=== PATIENT | female | born 1955 | race Caucasian/White ===

== ENCOUNTER → 2016-08-15 | Outpatient (CLI) | payer MEDICARE, MEDICAID ==
[~2016-08-15] MED LIST: DARVOCET N 1001 TAB PO; DIOVAN HCT PO; DIOVAN40 MG PO; HUMALOG100 U/ML; HYDROCODONE BIT1 T11 PO; IBU-8800 MG PO; LANTUS100 U/ML SC; LEXAPRO10 MG PO; NEURONTIN300 MG PO; SYNTHROID,LEV150 MCG PO; VYTORIN 10 MG-41 TAB PO; ZEGERID 20 MG-11 CAP PO; ZOFRAN4 MG PO; [UNRECOGNIZED DRUG - OTHER]; [UNRECOGNIZED DRUG - OTHER]
[2016-08-15 09:30] LABS: BILIRUBIN NEGATIVE (NEGATIVE); BLOOD TRACE-LYSED (NEGATIVE); CLARITY SL CLOUDY (CLEAR); COLOR YELLOW (YELLOW); GLUCOSE NEGATIVE (NEGATIVE); KETONE NEGATIVE (NEGATIVE); LEUKO ESTERASE TRACE (NEGATIVE); NITRITE NEGATIVE (NEGATIVE); PH 5.5 (5.0-9.0); PROTEIN 1+ (NEGATIVE); UROBILINOGEN 0.2 E.U./dl (0.2-1.0)
[2016-08-15 09:38] LABS: URINE TP/CRE RATIO 1.4 (<0.21)
[2016-08-15 09:39] LABS: BACTERIA TRACE; RBC 0-2 rbc/hpf (0-2); URINE REFLEX COMMENT YES (NO)
[2016-08-15 09:55] LABS: ALBUMIN 3.5 gm/dl (3.1-4.5); MAGNESIUM 2.3 mg/dL (1.5-2.1); PHOSPHOROUS 2.8 mg/dL (2.5-4.9); POTASSIUM 4.4 mmol/L (3.5-5.1)
[2016-08-15 09:58] LABS: HEMATOCRIT 34.3 % (37.0-47.0); HEMOGLOBIN 10.6 g/dl (12.0-16.0); MEAN CELL VOLUME 94.2 fl (81.0-99.0); MEAN CORPUSCULAR HGB 29.1 pg (27.0-31.0); MEAN CORPUSCULAR HGB CONC 30.9 g/dl (33.0-37.0); MEAN PLATELET VOLUME 10.5 fl (9.6-12.3); PLATELET COUNT AUTOMATED 350 10*3/uL (130-400); RED BLOOD COUNT 3.64 10*6/uL (4.10-5.10); RED CELL DISTRI WIDTH 14.6 % (0-14.5)
[2016-08-15 10:26] LABS: EOSINOPHIL # 0.1 10*3/uL (0-0.4); EOSINOPHILS 1 % (1-4); LYMPHOCYTE # 1.4 10*3/uL (1.3-4.4); METAMYELOCYTES 3 % (0-0); NEUTROPHIL # 11.1 10*3/uL (2.3-7.9); NEUTROPHILS 79 % (47-73); TOTAL CELLS COUNTED 100 #CELLS
[2016-08-15 10:27] LABS: PLATELET SUFFICIENCY NORMAL (NORMAL)
[2016-08-15 10:50] LABS: VITAMIN D, 25-HYDROXY 16.1 ng/mL (30-100)
[2016-08-15 10:51] LABS: FERRITIN 38.6 ng/mL (10.0-291.0); PTH INTACT 91.5 pg/mL (14.0-72.0)
== END | disposition home or self-care (01) ==
LOC: LAB 09:10
PROVIDERS: Internal Medicine Nephrology
DX: N18.4 Chronic kidney disease, stage 4 (severe) (principal); E55.9 Vitamin D deficiency, unspecified; R80.9 Proteinuria, unspecified; D63.1 Anemia in chronic kidney disease

== ENCOUNTER → 2017-03-13 | Outpatient (CLI) | payer MEDICARE, MEDICAID ==
[2017-03-13 13:46] LABS: BASO # 0.1 10*3/uL (0.0-0.1); BILIRUBIN NEGATIVE (NEGATIVE); BLOOD TRACE-LYSED (NEGATIVE); CLARITY CLEAR (CLEAR); COLOR YELLOW (YELLOW); EOS # 0.4 10*3/uL (0.0-0.4); EOS % 4.5 % (1.0-4.0); GLUCOSE TRACE (NEGATIVE); HEMOGLOBIN 9.8 g/dl (12.0-16.0); KETONE NEGATIVE (NEGATIVE); LEUKO ESTERASE NEGATIVE (NEGATIVE); LYMPH # 1.3 10*3/uL (1.3-4.4); LYMPH % 13.7 % (27.0-41.0); MEAN CELL VOLUME 92.5 fl (81.0-99.0); MEAN CORPUSCULAR HGB 28.3 pg (27.0-31.0); MEAN CORPUSCULAR HGB CONC 30.6 g/dl (33.0-37.0); MEAN PLATELET VOLUME 9.9 fl (9.6-12.3); MONO # 0.7 10*3/uL (0.1-1.0); MONO % 7.7 % (3.0-9.0); NEUT # 6.6 10*3/uL (2.3-7.9); NEUT % 71.9 % (47.0-73.0); NITRITE NEGATIVE (NEGATIVE); PLATELET COUNT AUTOMATED 296 10*3/uL (130-400); RED BLOOD COUNT 3.46 10*6/uL (4.10-5.10); RED CELL DISTRI WIDTH 15.2 % (0-14.5); SPECIFIC GRAVITY 1.015 (1.005-1.030); UROBILINOGEN 0.2 E.U./dl (0.2-1.0); WHITE BLOOD COUNT 9.2 10*3/uL (4.8-10.8)
[2017-03-13 13:57] LABS: BACTERIA 2+; RBC 0-2 rbc/hpf (0-2)
[2017-03-13 14:10] LABS: ALBUMIN 3.3 gm/dl (3.1-4.5); CREATININE 2.39 mg/dL (0.55-1.02); PHOSPHOROUS 4.1 mg/dL (2.5-4.9); POTASSIUM 4.8 mmol/L (3.5-5.1)
[2017-03-13 14:35] LABS: FERRITIN 38.1 ng/mL (10.0-291.0); VITAMIN D, 25-HYDROXY 18.1 ng/mL (30-100)
[2017-03-13 14:36] LABS: PTH INTACT 68.2 pg/mL (14.0-72.0)
== END | disposition home or self-care (01) ==
LOC: LAB 13:20
PROVIDERS: Internal Medicine Nephrology
DX: N18.4 Chronic kidney disease, stage 4 (severe) (principal); E55.9 Vitamin D deficiency, unspecified; D63.1 Anemia in chronic kidney disease; R80.9 Proteinuria, unspecified; Z79.899 Other long term (current) drug therapy

== ENCOUNTER → 2017-09-08 | Outpatient (CLI) | payer MEDICARE, MEDICAID ==
[2017-09-08 10:24] LABS: BASO # 0.1 10*3/uL (0.0-0.1); BASO % 1.4 % (0.0-1.0); EOS # 0.5 10*3/uL (0.0-0.4); HEMATOCRIT 31.7 % (37.0-47.0); HEMOGLOBIN 9.5 g/dl (12.0-16.0); LYMPH # 1.1 10*3/uL (1.3-4.4); LYMPH % 12.1 % (27.0-41.0); MEAN CELL VOLUME 94.1 fl (81.0-99.0); MEAN CORPUSCULAR HGB 28.2 pg (27.0-31.0); MEAN PLATELET VOLUME 9.9 fl (9.6-12.3); MONO # 0.7 10*3/uL (0.1-1.0); MONO % 7.5 % (3.0-9.0); NEUT # 6.9 10*3/uL (2.3-7.9); NEUT % 73.3 % (47.0-73.0); PLATELET COUNT AUTOMATED 339 10*3/uL (130-400); RED BLOOD COUNT 3.37 10*6/uL (4.10-5.10); RED CELL DISTRI WIDTH 14.6 % (0-14.5); WHITE BLOOD COUNT 9.5 10*3/uL (4.8-10.8)
[2017-09-08 10:28] LABS: BILIRUBIN NEGATIVE (NEGATIVE); BLOOD TRACE-INTACT (NEGATIVE); CLARITY CLEAR (CLEAR); COLOR YELLOW (YELLOW); GLUCOSE NEGATIVE (NEGATIVE); KETONE NEGATIVE (NEGATIVE); LEUKO ESTERASE TRACE (NEGATIVE); NITRITE NEGATIVE (NEGATIVE); SPECIFIC GRAVITY <= 1.005 (1.005-1.030); UROBILINOGEN 0.2 E.U./dl (0.2-1.0)
[2017-09-08 10:36] LABS: BACTERIA TRACE
[2017-09-08 10:47] LABS: ALBUMIN 3.6 gm/dl (3.1-4.5); CREATININE 2.29 mg/dL (0.55-1.02); PHOSPHOROUS 3.7 mg/dL (2.5-4.9); POTASSIUM 4.7 mmol/L (3.5-5.1)
[2017-09-08 12:01] LABS: FERRITIN 31.6 ng/mL (10.0-291.0); VITAMIN D, 25-HYDROXY 25.5 ng/mL (30-100)
== END | disposition home or self-care (01) ==
LOC: LAB 09:38
PROVIDERS: Internal Medicine Nephrology
DX: N18.4 Chronic kidney disease, stage 4 (severe) (principal); E55.9 Vitamin D deficiency, unspecified; D53.1 Other megaloblastic anemias, not elsewhere classified; R80.9 Proteinuria, unspecified

== ENCOUNTER → 2018-02-26 | Outpatient (CLI) | payer MEDICARE, MEDICAID ==
[2018-02-26 10:56] LABS: BASO # 0.1 10*3/uL (0.0-0.1); BASO % 1.1 % (0.0-1.0); EOS # 0.3 10*3/uL (0.0-0.4); EOS % 3.8 % (1.0-4.0); HEMATOCRIT 34.2 % (37.0-47.0); HEMOGLOBIN 11.1 g/dl (12.0-16.0); LYMPH # 1.2 10*3/uL (1.3-4.4); LYMPH % 12.8 % (27.0-41.0); MEAN CELL VOLUME 86.6 fl (81.0-99.0); MEAN CORPUSCULAR HGB 28.1 pg (27.0-31.0); MEAN CORPUSCULAR HGB CONC 32.5 g/dl (33.0-37.0); MEAN PLATELET VOLUME 10.1 fl (9.6-12.3); MONO # 0.5 10*3/uL (0.1-1.0); MONO % 5.7 % (3.0-9.0); NEUT # 6.8 10*3/uL (2.3-7.9); NEUT % 75.7 % (47.0-73.0); PLATELET COUNT AUTOMATED 404 10*3/uL (130-400); RED BLOOD COUNT 3.95 10*6/uL (4.10-5.10); RED CELL DISTRI WIDTH 13.9 % (0-14.5)
[2018-02-26 11:02] LABS: BILIRUBIN NEGATIVE (NEGATIVE); BLOOD NEGATIVE (NEGATIVE); CLARITY SL CLOUDY (CLEAR); COLOR YELLOW (YELLOW); GLUCOSE NEGATIVE (NEGATIVE); KETONE NEGATIVE (NEGATIVE); LEUKO ESTERASE NEGATIVE (NEGATIVE); NITRITE NEGATIVE (NEGATIVE); UROBILINOGEN 0.2 E.U./dl (0.2-1.0)
[2018-02-26 11:10] LABS: URINE CREATININE RANDOM 36.7 mg/dL
[2018-02-26 11:20] LABS: RBC 0-2 rbc/hpf (0-2)
[2018-02-26 11:24] LABS: ALBUMIN 3.5 gm/dl (3.1-4.5); CREATININE 2.27 mg/dL (0.55-1.02); PHOSPHOROUS 4.6 mg/dL (2.5-4.9); POTASSIUM 4.4 mmol/L (3.5-5.1)
[2018-02-26 12:58] LABS: FERRITIN 144.3 ng/mL (10.0-291.0); VITAMIN D, 25-HYDROXY 68.7 ng/mL (30-100)
[2018-02-26 12:59] LABS: PTH INTACT 72.2 pg/mL (18.5-88.0)
== END | disposition home or self-care (01) ==
LOC: LAB 10:08
PROVIDERS: Internal Medicine Nephrology
DX: N18.4 Chronic kidney disease, stage 4 (severe) (principal); E55.9 Vitamin D deficiency, unspecified; D63.1 Anemia in chronic kidney disease; R80.9 Proteinuria, unspecified

== ENCOUNTER → 2018-11-06 | Outpatient (CLI) | payer MEDICARE, MEDICAID ==
[2018-11-06 11:11] LABS: ALBUMIN 3.7 gm/dl (3.1-4.5); CREATININE 2.36 mg/dL (0.55-1.02); FREE T4 0.83 ng/dl (0.76-1.46); POTASSIUM 5.2 mmol/L (3.5-5.1); TOTAL PROTEIN 7.3 gm/dL (6.4-8.2)
[2018-11-06 11:16] LABS: THYROID STIM HORMONE (HS) 0.941 uIU/ml (0.358-4.75)
[2018-11-07 06:32] LABS: CREATININE,URINE 36.4 mg/dL (Not Estab.); MICRO ALBUMIN/CRE RATIO 147.3 (0.0-30.0)
== END | disposition home or self-care (01) ==
LOC: LAB 10:17
PROVIDERS: Nurse Practitioner Family
DX: E11.49 Type 2 diabetes mellitus with other diabetic neurological complication (principal); E11.65 Type 2 diabetes mellitus with hyperglycemia

== ENCOUNTER → 2019-03-19 | Outpatient (CLI) | payer MEDICARE, MEDICAID ==
[2019-03-19 09:48] LABS: BASO # 0.1 10*3/uL (0.0-0.1); BASO % 1.1 % (0.0-1.0); EOS # 0.3 10*3/uL (0.0-0.4); HEMATOCRIT 34.3 % (37.0-47.0); HEMOGLOBIN 10.3 g/dl (12.0-16.0); LYMPH # 1.7 10*3/uL (1.3-4.4); LYMPH % 15.8 % (27.0-41.0); MEAN CELL VOLUME 96.1 fl (81.0-99.0); MEAN CORPUSCULAR HGB 28.9 pg (27.0-31.0); MEAN PLATELET VOLUME 9.6 fl (9.6-12.3); MONO # 0.8 10*3/uL (0.1-1.0); MONO % 7.7 % (3.0-9.0); NEUT # 7.4 10*3/uL (2.3-7.9); NEUT % 70.5 % (47.0-73.0); PLATELET COUNT AUTOMATED 292 10*3/uL (130-400); RED BLOOD COUNT 3.57 10*6/uL (4.10-5.10); RED CELL DISTRI WIDTH 15.1 % (0-14.5); WHITE BLOOD COUNT 10.4 10*3/uL (4.8-10.8)
[2019-03-19 09:57] LABS: URINE CREATININE RANDOM 17.8 mg/dL
[2019-03-19 10:16] LABS: ALBUMIN 3.6 gm/dl (3.1-4.5); CREATININE 2.41 mg/dL (0.55-1.02); PHOSPHOROUS 3.7 mg/dL (2.5-4.9); POTASSIUM 4.6 mmol/L (3.5-5.1)
[2019-03-19 10:34] LABS: BILIRUBIN NEGATIVE (NEGATIVE); BLOOD NEGATIVE (NEGATIVE); CLARITY SL CLOUDY (CLEAR); COLOR YELLOW (YELLOW); GLUCOSE NEGATIVE (NEGATIVE); KETONE NEGATIVE (NEGATIVE)
[2019-03-19 10:35] LABS: LEUKO ESTERASE NEGATIVE (NEGATIVE); NITRITE NEGATIVE (NEGATIVE); UROBILINOGEN 0.2 E.U./dl (0.2-1.0)
[2019-03-19 10:41] LABS: BACTERIA 1+; MUCOUS TRACE
[2019-03-19 12:25] LABS: VITAMIN D, 25-HYDROXY 29.9 ng/mL (30-100)
[2019-03-19 12:26] LABS: FERRITIN 25.7 ng/mL (10.0-291.0); PTH INTACT 135.9 pg/mL (18.5-88.0)
== END | disposition home or self-care (01) ==
LOC: LAB 09:23
PROVIDERS: Internal Medicine Nephrology
DX: D63.1 Anemia in chronic kidney disease (principal); N18.4 Chronic kidney disease, stage 4 (severe); E55.9 Vitamin D deficiency, unspecified; R80.9 Proteinuria, unspecified

== ENCOUNTER 2019-11-22 16:05 | Inpatient (IN) | payer MEDICARE, MEDICAID ==
[~2019-11-22] VITALS: Ht 170.2 cm; Wt 120.4 kg
[2019-11-22 16:19] VITALS: BP 147/63
[2019-11-22 17:17] LABS: MEAN CELL VOLUME 92.2 fl (81.0-99.0); MEAN CORPUSCULAR HGB 25.8 pg (27.0-31.0); MEAN PLATELET VOLUME 9.9 fl (9.6-12.3); NUCLEATED RED BLOOD CELL 0.1 10*3/uL (0.0-0.0); NUCLEATED RED BLOOD CELL 0.8 % (0.0-0.0); PLATELET COUNT AUTOMATED 317 10*3/uL (130-400); RED BLOOD COUNT 2.17 10*6/uL (4.10-5.10); RED CELL DISTRI WIDTH 18.5 % (0-14.5); WHITE BLOOD COUNT 10.3 10*3/uL (4.8-10.8)
[2019-11-22 17:39] LABS: BASOPHILS 1 % (0-1); MICROCYTOSIS MODERATE; PLATELET SUFFICIENCY NORMAL (NORMAL); TOTAL CELLS COUNTED 100 #CELLS
[2019-11-22 17:40] LABS: ACT PARTIAL THROMBO TIME 26.6 SECONDS (20.0-32.1); INTERNATIONAL NORM RATIO 0.9 (2.0-3.5)
[2019-11-22 17:41] LABS: ALBUMIN 2.9 gm/dl (3.1-4.5); CREATININE 3.12 mg/dL (0.55-1.02); POTASSIUM 4.8 mmol/L (3.5-5.1); TOTAL PROTEIN 6.7 gm/dL (6.4-8.2)
[2019-11-22 17:42] LABS: TROPONIN I 0.022 ng/ml (<0.045)
--- NOTE | 2019-11-22 18:47 | NUR ---
BLOOD BANK CALLED STATING DUE TO ANTIBDY TEST THERE WOULD BE A DELAY IN BLOOD FOR PT
--- NOTE | 2019-11-22 18:47 | NUR ---
PT TO RECIEVE LASIX IN BETWEEN UNITS OF BLOOD
--- NOTE | 2019-11-22 20:07 | NUR ---
CALLED NURSE ON 5TH FLOOR FOR TRANSPORT NO RESPONSE WILL ATTEMPT TO CALL AGAIN
--- NOTE | 2019-11-22 20:27 | NUR ---
CALLED TO [facility] 2ND ATTEMPT NO ANSWER, CALLED FLOOR THEY SAID THEY WOULD HAVE THE NURSE CALL FOR TRANSPORT
[2019-11-22 21:00] VITALS: BP 163/64
--- NOTE | 2019-11-22 21:00 | NUR ---
A 64, admitted to 5E, under the services of LON Iglesias DO with a diagnosis of CHF, ANEMIA. Chief complaint is FEELING WEAK/TIRED/SHORT OF BREATH AT HOME. Patient arrived via stretcher from ER. Monitor applied. Initial assessment completed. Vital signs taken and recorded. LON IGLESIAS DO notified of admission to the unit. Orders received. See assessment for past medical history, medications and allergies. Patient and/or family oriented to unit. [facility] visitation policy reviewed. Clothing/patient valuable form completed. DANIEL CHEEMA
--- NOTE | 2019-11-22 21:05 | NUR ---
PT. KEEPS STATING THAT SHE IS NOT STAYING TOMORROW & WILL LEAVE AFTER SHE RECEIVED BLOOD. STATES THAT SHE HAS A DOG AT HOME THAT CANNOT BE LEFT ALONE & SHE NEEDS TO BE HOME WITH HER DOG OR HE WILL NOT EAT. DAUGHTER, GILBERTO, IS STAYING AT PT'S HOUSE OVERNIGHT. PT. ALSO STATES THAT SHE STOPPED TAKING HER IRON 8 MOUNTHS AGO DUE TO THE COST OF THE PRESCRIPTION. STATES THAT A PRESCRIPTION OF IRON PILLS COST HER APPROXIMATELY $200.
--- NOTE | 2019-11-22 21:30 | NUR ---
DR. GR HERE TO SEE PT. & DISCUSS PLAN OF CARE.
--- NOTE | 2019-11-22 22:00 | NUR ---
REFUSES INSULIN COVERAGE.
[2019-11-22] MEDS ORDERED: LASIX40 MG PO (22:02)
[2019-11-22] MEDS ORDERED: CATAPRES0.2 M1 PO (22:03)
[2019-11-22] MEDS ORDERED: ZETIA10 MG PO (22:03)
[2019-11-22] MEDS ORDERED: COZAAR100 MG PO (22:04)
[2019-11-22] MEDS ORDERED: SYNTHROID,LEVO88 MCG PO (22:05)
[2019-11-22] MEDS ORDERED: ZOCOR40 MG PO (22:08)
[2019-11-22] MEDS ORDERED: Rocaltrol0.25 MCG PO (22:08)
[2019-11-22] MEDS ORDERED: LABETALOL HCL100 MG PO (22:09)
[2019-11-22] MEDS ORDERED: AURYXIA210 MG PO (22:10)
[2019-11-22] MEDS ORDERED: ASPIRIN ADULT L81 M1 PO (22:10)
[2019-11-22] MEDS ORDERED: LANTUS SOL100 UNIT/1 SC (22:12)
[2019-11-22] MEDS ORDERED: HUMALOG100 UNIT/2 SC (22:12)
[2019-11-22 23:32] LABS: BILIRUBIN Negative (Negative); BLOOD Negative (Negative); CLARITY Clear (Clear); COLOR Yellow (Yellow); GLUCOSE Negative (Negative); KETONE Negative (Negative); LEUKO ESTERASE Negative (Negative); NITRITE Negative (Negative); SPECIFIC GRAVITY <= 1.005 (1.001-1.030); UROBILINOGEN 0.2 E.U./dl (0.0-1.0)
[2019-11-22 23:39] LABS: BACTERIA TRACE; RBC 0-2 rbc/hpf (0-2); WBC 0-2 wbc/hpf (0-5)
[2019-11-23] VITALS (15 sets, daily range): BP systolic 95–171; BP diastolic 47–80
--- NOTE | 2019-11-23 01:20 | NUR ---
PT'S BP ELEVATED. CALLED DR. BARRERA; NEW ORDER RECEIVED FOR LABETALOL.
--- NOTE | 2019-11-23 04:00 | NUR ---
RESTING IN BED; CALL LIGHT WITHIN REACH.
[2019-11-23 05:57] LABS: ALBUMIN 2.9 gm/dl (3.1-4.5); POTASSIUM 4.9 mmol/L (3.5-5.1)
[2019-11-23 06:00] LABS: TOTAL PROTEIN 6.5 gm/dL (6.4-8.2)
--- NOTE | 2019-11-23 06:56 | NUR ---
BLOOD SUGAR 203; COVERAGE PER EMAR. CALLED DR. AVILA'S ANSWERING SERVICE & LEFT MESSAGE PERTAINING TO CONSULT.
[2019-11-23 07:17] LABS: FERRITIN 43.3 ng/mL (10.0-291.0)
--- NOTE | 2019-11-23 07:38 | NUR ---
IN PT ROOM TO COMPLETE ASSESSMENT WITHOUT INCIDENCE. PT DENIES SOB AND STATES THAT SHE JUST FEELS FATIGUED. PT STATES SHE DOES NOT WANT THE EGD DONE, SHE WILL COME BACK AND DO IT OUTPATIENT, SHE ONLY WANTS TO HAVE HER TRANSFUSION DONE AND THEN WANTS TO GET HOME. CALL LIGHT WITHIN REACH, WILL CONTINUE TO MONITOR
--- NOTE | 2019-11-23 08:20 | NUR ---
PHYSICAL THERAPY PT order received and chart reviewed. Dr. gordon to see pt at this time, pt with critical H&H awaiting 2 units of blood. Will follow at a later time. Lux Dallas SPT Katelyn Ashley PT
--- NOTE | 2019-11-23 08:24 | NUR ---
Patient not available for Occupational Therapy evaluation as she is with the doctor and the nurse. Nathalie Deshpande OTr/l
--- NOTE | 2019-11-23 10:21 | NUR ---
DR AVILA IN TO SEE PATIENT
--- NOTE | 2019-11-23 10:24 | NUR ---
SPOKE TO DR ROSALES REGARDING PT COREG THAT IS BID AND IS NEXT ORDERED FOR 2199, HE STATES IT IS FINE TO TIME IT FOR NOW AND 2199.
--- NOTE | 2019-11-23 10:39 | NUR ---
DR ANDREWS IN TO SEE PATIENT
--- NOTE | 2019-11-23 11:06 | NUR ---
Molder Helper in to talk to patient. Patient states lives at HOME with ALONE, DAUGHTER LIVES 4 H[address] AWAY. There are NO steps in the home. Physician: BRIAN PERALTA Pharmacy: [facility] Home health services: NONE Patient's level of ADLs: INDEPENDENT Patient has working utilities: YES DME: HAS A WALKER BUT DOES NOT USE IT. Follow-up physician's appointment after d/c: WILL BE MADE BY HOSPITALIST NURSE DIRECTOR ON DISCHARGE Does patient want to access PORTAL?: NO Discharge plan PT LIVES AT HOME ALONE AND STATES HER DAUGHTER LIVES [address] HOU[address] AWAY. PT RECEIVING BLOOD TODAY. STATES SHE DOES NOT WANT TO HAVE EGD DONE WHILE IN HOSPITAL. JUST WANTS TO GET BLOOD AND GO HOME. TALKED WITH PT ABOUT HOME HEALTH. SHE STATES SHE WANTS HERTIAGE ON DISCHARGE. WILL CONTINUE TO FOLLOW. WILL HAVE A RIDE HOME ON DISCHARGE.. MAYELIN FREY
--- NOTE | 2019-11-23 11:20 | NUR ---
PHYSICAL THERAPY Chart reviewed pt currently recieving blood will follow at a later time Katelyn Ashley PT
--- NOTE | 2019-11-23 11:26 | NUR ---
GROUP PRACTICE PEDIATRICIAN FAXED REFERRAL TO [facility] FOR REVIEW.
--- NOTE | 2019-11-23 11:49 | NUR ---
DR BRONSON IN TO SEE PATIENT
--- NOTE | 2019-11-23 12:00 | NUR ---
DR JESUS IN TO SEE PATIENT
--- NOTE | 2019-11-23 13:38 | NUR ---
Patient not available for Occupational Therapy as she is still receiving blood transfusion. Nathalie Deshpande OTR/L
--- NOTE | 2019-11-23 13:43 | NUR ---
PHYSICAL THERAPY Attempted to see pt at the bedside pt still receieving blood will follow Katelyn Ashley PT
--- NOTE | 2019-11-23 14:35 | NUR ---
PHYSICAL THERAPY Spoke with nsg, pts blood was finished infusing and ok to see pt. Pt stated that she was feeling better following the infusion and that she felt she was at her baseline. Pt stated she was going to return home today with her daughter and grandchildren nearby and would be receiving home health. Pt reported she is able to do everything on her own and that she gets up and goes to the bathroom on her own. Pt stated she did not want PT at this time and would follow up with home health. Will discontinue PT orders at this time following above conversation. Lux Dallas SPT Katelyn Ashley PT
--- NOTE | 2019-11-23 14:35 | NUR ---
Occupational Therapy evaluation offered to patient. She just finished with blood transfusion and reported that she felt much better. She reports that she is slow (due to her OA in her knees) but independent in mobility in her room and in all her ADLs. She reports that she does not need any OT at this time but she would agree to home care nursing and therapy at home if nurse felt she needed it. Discharge OT referral per patient's request. Thank you. Nathalie Deshpande OTR/Daniella
[2019-11-23] MEDS ORDERED: CARVEDILOL6.25 MG PO (15:04)
[2019-11-23 15:52] LABS: BASO # 0.1 10*3/uL (0.0-0.1); BASO % 0.8 % (0.0-1.0); EOS # 0.4 10*3/uL (0.0-0.4); EOS % 4.1 % (1.0-4.0); HEMATOCRIT 25.6 % (37.0-47.0); LYMPH # 0.7 10*3/uL (1.3-4.4); LYMPH % 7.8 % (27.0-41.0); MEAN CELL VOLUME 93.1 fl (81.0-99.0); MEAN CORPUSCULAR HGB 27.3 pg (27.0-31.0); MEAN CORPUSCULAR HGB CONC 29.3 g/dl (33.0-37.0); MEAN PLATELET VOLUME 9.7 fl (9.6-12.3); MONO # 0.7 10*3/uL (0.1-1.0); MONO % 7.3 % (3.0-9.0); NEUT # 6.9 10*3/uL (2.3-7.9); NEUT % 77.7 % (47.0-73.0); NUCLEATED RED BLOOD CELL 0.5 % (0.0-0.0); PLATELET COUNT AUTOMATED 321 10*3/uL (130-400); RED BLOOD COUNT 2.75 10*6/uL (4.10-5.10); RED CELL DISTRI WIDTH 18.4 % (0-14.5); WHITE BLOOD COUNT 8.9 10*3/uL (4.8-10.8)
--- NOTE | 2019-11-23 16:47 | NUR ---
PT STATES SINCE HER HGB IS UP SHE WANTS TO LEAVE AMA AND WILL FOLLOW UP OUTPATIENT FOR THE EGD
--- NOTE | 2019-11-23 16:49 | NUR ---
NOTIFIED DR SARMIENTO THAT PT IS LEAVING AMA
--- NOTE | 2019-11-23 17:07 | NUR ---
DISCUSSED WITH THE PATIENT HOW IT IS IMPORTANT SHE STAY, BUT SHE IS GOING TO LEAVE AMA. 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 PT WILL CALL WHEN HER RIDE IS HERE
--- NOTE | 2019-11-23 17:39 | NUR ---
PT LEAVING THE FLOOR AT THIS TIME WITH ALL OF HER BELONGINGS
== END 2019-11-23 17:51 | disposition left against medical advice (07) | DRG 292 ==
LOC: ED 16:05 → EDHOLD 18:21 → 5E 18:21
PROVIDERS: Internal Medicine; Nurse Practitioner Family; ADMIT Internal Medicine; ATTEND Internal Medicine
PROC: 30233N1 Transfusion of Nonautologous Red Blood Cells into Peripheral Vein, Percutaneous Approach (ICD-10-PCS; principal; 2019-11-23)
DX: I13.0 Hypertensive heart and chronic kidney disease with heart failure and stage 1 through stage 4 chronic kidney disease, or unspecified chronic kidney disease (principal); N17.9 Acute kidney failure, unspecified; E44.0 Moderate protein-calorie malnutrition; G45.9 Transient cerebral ischemic attack, unspecified; N18.4 Chronic kidney disease, stage 4 (severe); Z68.41 Body mass index [BMI] 40.0-44.9, adult; Z53.29 Procedure and treatment not carried out because of patient's decision for other reasons; D50.9 Iron deficiency anemia, unspecified; I50.9 Heart failure, unspecified; E11.22 Type 2 diabetes mellitus with diabetic chronic kidney disease; E78.5 Hyperlipidemia, unspecified; E03.9 Hypothyroidism, unspecified; E87.8 Other disorders of electrolyte and fluid balance, not elsewhere classified; E11.65 Type 2 diabetes mellitus with hyperglycemia; E83.41 Hypermagnesemia; E78.1 Pure hyperglyceridemia; E11.42 Type 2 diabetes mellitus with diabetic polyneuropathy; F32.9 Major depressive disorder, single episode, unspecified; D63.1 Anemia in chronic kidney disease; Z88.6 Allergy status to analgesic agent; Z88.8 Allergy status to other drugs, medicaments and biological substances; Z90.711 Acquired absence of uterus with remaining cervical stump; Z90.49 Acquired absence of other specified parts of digestive tract; Z86.73 Personal history of transient ischemic attack (TIA), and cerebral infarction without residual deficits; Z82.49 Family history of ischemic heart disease and other diseases of the circulatory system; Z83.3 Family history of diabetes mellitus; Z79.4 Long term (current) use of insulin

== ENCOUNTER → 2019-11-26 | Outpatient (CLI) | payer MEDICARE, MEDICAID ==
[~2019-11-26] MED LIST changes: +ASPIRIN ADULT L81 M1 PO; +AURYXIA210 MG PO; +CARVEDILOL6.25 MG PO; +CATAPRES0.2 M1 PO; +COZAAR100 MG PO; +HUMALOG100 UNIT/2 SC; +LABETALOL HCL100 MG PO; +LANTUS SOL100 UNIT/1 SC; +LASIX40 MG PO; +Rocaltrol0.25 MCG PO; +SYNTHROID,LEVO88 MCG PO; +ZETIA10 MG PO; +ZOCOR40 MG PO
[2019-11-26 13:03] LABS: BASO # 0.1 10*3/uL (0.0-0.1); BASO % 0.7 % (0.0-1.0); EOS # 0.3 10*3/uL (0.0-0.4); EOS % 4.3 % (1.0-4.0); HEMATOCRIT 26.4 % (37.0-47.0); LYMPH # 0.8 10*3/uL (1.3-4.4); LYMPH % 11.7 % (27.0-41.0); MEAN CELL VOLUME 93.3 fl (81.0-99.0); MEAN CORPUSCULAR HGB 27.2 pg (27.0-31.0); MEAN CORPUSCULAR HGB CONC 29.2 g/dl (33.0-37.0); MEAN PLATELET VOLUME 9.4 fl (9.6-12.3); MONO # 0.5 10*3/uL (0.1-1.0); MONO % 6.5 % (3.0-9.0); NEUT # 5.4 10*3/uL (2.3-7.9); PLATELET COUNT AUTOMATED 322 10*3/uL (130-400); RED BLOOD COUNT 2.83 10*6/uL (4.10-5.10); RED CELL DISTRI WIDTH 18.5 % (0-14.5); WHITE BLOOD COUNT 7.2 10*3/uL (4.8-10.8)
[2019-11-26 13:11] LABS: CREATININE 2.85 mg/dL (0.55-1.02)
== END | disposition home or self-care (01) ==
LOC: LAB 12:41
PROVIDERS: ATTEND Internal Medicine Nephrology
DX: D64.9 Anemia, unspecified (principal)

== ENCOUNTER → 2020-01-23 | Outpatient (CLI) | payer MEDICARE, MEDICAID ==
[2020-01-23 10:52] LABS: BILIRUBIN Negative (Negative); BLOOD Negative (Negative); CLARITY Clear (Clear); COLOR Yellow (Yellow); GLUCOSE Trace (Negative); KETONE Negative (Negative); LEUKO ESTERASE Negative (Negative); NITRITE Negative (Negative); UROBILINOGEN 0.2 E.U./dl (0.0-1.0)
[2020-01-23 10:53] LABS: BASO # 0.1 10*3/uL (0.0-0.1); EOS # 0.5 10*3/uL (0.0-0.4); HEMATOCRIT 30.7 % (37.0-47.0); LYMPH # 1.2 10*3/uL (1.3-4.4); LYMPH % 13.3 % (27.0-41.0); MEAN CELL VOLUME 96.8 fl (81.0-99.0); MEAN CORPUSCULAR HGB 29.3 pg (27.0-31.0); MEAN CORPUSCULAR HGB CONC 30.3 g/dl (33.0-37.0); MEAN PLATELET VOLUME 10.6 fl (9.6-12.3); MONO # 0.7 10*3/uL (0.1-1.0); MONO % 7.7 % (3.0-9.0); NEUT # 6.4 10*3/uL (2.3-7.9); NEUT % 71.7 % (47.0-73.0); PLATELET COUNT AUTOMATED 332 10*3/uL (130-400); RED BLOOD COUNT 3.17 10*6/uL (4.10-5.10); RED CELL DISTRI WIDTH 17.5 % (0-14.5)
[2020-01-23 11:06] LABS: URINE CREATININE RANDOM 28.5 mg/dL
[2020-01-23 11:16] LABS: ALBUMIN 3.3 gm/dl (3.1-4.5); CREATININE 2.93 mg/dL (0.55-1.02); POTASSIUM 4.7 mmol/L (3.5-5.1)
[2020-01-23 12:17] LABS: BACTERIA 2+
[2020-01-23 13:23] LABS: FERRITIN 32.7 ng/mL (10.0-291.0); PTH INTACT 277.7 pg/mL (18.5-88.0); VITAMIN D, 25-HYDROXY 34.6 ng/mL (30-100)
== END | disposition home or self-care (01) ==
LOC: LAB 10:15
PROVIDERS: ATTEND Internal Medicine Nephrology
DX: I13.0 Hypertensive heart and chronic kidney disease with heart failure and stage 1 through stage 4 chronic kidney disease, or unspecified chronic kidney disease (principal); E11.22 Type 2 diabetes mellitus with diabetic chronic kidney disease; N18.4 Chronic kidney disease, stage 4 (severe); I50.9 Heart failure, unspecified; N17.9 Acute kidney failure, unspecified; Z79.4 Long term (current) use of insulin; R80.9 Proteinuria, unspecified

== ENCOUNTER → 2020-05-05 | Outpatient (CLI) | payer MEDICARE, MEDICAID ==
[2020-05-05 10:06] LABS: BILIRUBIN Negative (Negative); BLOOD Negative (Negative); CLARITY Clear (Clear); COLOR Yellow (Yellow); GLUCOSE 2+ (Negative); KETONE Negative (Negative); LEUKO ESTERASE Trace (Negative); NITRITE Negative (Negative); SPECIFIC GRAVITY 1.015 (1.001-1.030); UROBILINOGEN 0.2 E.U./dl (0.0-1.0)
[2020-05-05 10:13] LABS: HEMATOCRIT 30.9 % (37.0-47.0); MEAN CELL VOLUME 101.3 fl (81.0-99.0); MEAN CORPUSCULAR HGB 31.1 pg (27.0-31.0); MEAN CORPUSCULAR HGB CONC 30.7 g/dl (33.0-37.0); MEAN PLATELET VOLUME 10.4 fl (9.6-12.3); NUCLEATED RED BLOOD CELL 0.4 % (0.0-0.0); PLATELET COUNT AUTOMATED 322 10*3/uL (130-400); RED BLOOD COUNT 3.05 10*6/uL (4.10-5.10); RED CELL DISTRI WIDTH 14.9 % (0-14.5); WHITE BLOOD COUNT 9.5 10*3/uL (4.8-10.8)
[2020-05-05 10:18] LABS: URINE CREATININE RANDOM 62.6 mg/dL
[2020-05-05 10:25] LABS: BACTERIA 1+
[2020-05-05 10:30] LABS: BASOPHILS 3 % (0-1); PLATELET SUFFICIENCY NORMAL (NORMAL); TOTAL CELLS COUNTED 100 #CELLS
[2020-05-05 10:32] LABS: ALBUMIN 3.1 gm/dl (3.1-4.5); CREATININE 2.95 mg/dL (0.55-1.02); POTASSIUM 5.2 mmol/L (3.5-5.1)
[2020-05-05 10:42] LABS: VITAMIN D, 25-HYDROXY 33.9 ng/mL (30-100)
[2020-05-05 10:43] LABS: FERRITIN 28.7 ng/mL (10.0-291.0); PTH INTACT 228.2 pg/mL (18.5-88.0)
== END | disposition home or self-care (01) ==
LOC: LAB 09:25
PROVIDERS: ATTEND Internal Medicine Nephrology
DX: N18.4 Chronic kidney disease, stage 4 (severe) (principal); D63.1 Anemia in chronic kidney disease; E55.9 Vitamin D deficiency, unspecified; R80.9 Proteinuria, unspecified

== ENCOUNTER 2020-08-01 08:41 | Inpatient (IN) | payer MEDICARE, MEDICAID ==
[~2020-08-01] VITALS: Ht 170.1 cm; Wt 117.0 kg
[2020-08-01 08:48] VITALS: BP 173/56
[2020-08-01 09:16] LABS: BASO # 0.1 10*3/uL (0.0-0.1); EOS # 0.4 10*3/uL (0.0-0.4); EOS % 4.6 % (1.0-4.0); HEMATOCRIT 29.4 % (37.0-47.0); LYMPH # 0.8 10*3/uL (1.3-4.4); LYMPH % 8.4 % (27.0-41.0); MEAN CELL VOLUME 105.4 fl (81.0-99.0); MEAN CORPUSCULAR HGB 32.3 pg (27.0-31.0); MEAN CORPUSCULAR HGB CONC 30.6 g/dl (33.0-37.0); MEAN PLATELET VOLUME 9.9 fl (9.6-12.3); MONO # 0.7 10*3/uL (0.1-1.0); MONO % 7.5 % (3.0-9.0); NEUT # 7.2 10*3/uL (2.3-7.9); NEUT % 76.8 % (47.0-73.0); PLATELET COUNT AUTOMATED 323 10*3/uL (130-400); RED BLOOD COUNT 2.79 10*6/uL (4.10-5.10); RED CELL DISTRI WIDTH 14.2 % (0-14.5); WHITE BLOOD COUNT 9.4 10*3/uL (4.8-10.8)
[2020-08-01 09:33] LABS: CREATININE 3.66 mg/dL (0.55-1.02); POTASSIUM 4.7 mmol/L (3.5-5.1); TOTAL PROTEIN 6.9 gm/dL (6.4-8.2); URIC ACID 11.2 mg/dL (2.6-6.0)
[2020-08-01] MEDS ORDERED: MONTELUKAST SOD10 MG PO (11:16)
[2020-08-01] MEDS ORDERED: CARVEDILOL12.5 MG PO (11:17)
[2020-08-01] MEDS ORDERED: DULOXETINE HCL60 MG PO (11:18)
[2020-08-01] MEDS ORDERED: LEVOTHYROXINE100 MC1 PO (11:19)
[2020-08-01 11:30] VITALS: BP 178/75
[2020-08-01 16:00] VITALS: BP 156/54
[2020-08-01 20:00] VITALS: BP 169/69
[2020-08-01 20:56] LABS: CREATININE 3.32 mg/dL (0.55-1.02); POTASSIUM 5.6 mmol/L (3.5-5.1)
[2020-08-02] VITALS: BP 156/58
[2020-08-02 06:29] LABS: BASO % 0.2 % (0.0-1.0); EOS % 0.1 % (1.0-4.0); HEMATOCRIT 28.5 % (37.0-47.0); LYMPH # 0.7 10*3/uL (1.3-4.4); LYMPH % 5.2 % (27.0-41.0); MEAN CELL VOLUME 103.6 fl (81.0-99.0); MEAN CORPUSCULAR HGB CONC 30.9 g/dl (33.0-37.0); MEAN PLATELET VOLUME 10.7 fl (9.6-12.3); MONO # 0.8 10*3/uL (0.1-1.0); MONO % 5.7 % (3.0-9.0); NEUT # 11.8 10*3/uL (2.3-7.9); PLATELET COUNT AUTOMATED 363 10*3/uL (130-400); RED BLOOD COUNT 2.75 10*6/uL (4.10-5.10); RED CELL DISTRI WIDTH 13.9 % (0-14.5); WHITE BLOOD COUNT 13.6 10*3/uL (4.8-10.8)
[2020-08-02 06:39] LABS: INTERNATIONAL NORM RATIO 0.9 (2.0-3.5)
[2020-08-02 07:03] LABS: ALBUMIN 2.9 gm/dl (3.1-4.5); CREATININE 3.2 mg/dL (0.55-1.02); POTASSIUM 5.5 mmol/L (3.5-5.1); TOTAL PROTEIN 6.8 gm/dL (6.4-8.2)
[2020-08-02 07:09] LABS: THYROID STIM HORMONE (HS) 1.33 uIU/ml (0.358-4.75)
[2020-08-02 08:00] VITALS: BP 153/67
[2020-08-02 12:00] VITALS: BP 176/70
[2020-08-02] MEDS ORDERED: OMEPRAZOLE20 M2 PO (12:43)
[2020-08-02] MEDS ORDERED: VITAMIN D31250 MC1 PO (12:45)
[2020-08-02] MEDS ORDERED: NOVOLOG100 UNIT/1 SC (12:47)
[2020-08-02] MEDS ORDERED: VENT7GM PO (12:49)
[2020-08-02] MEDS ORDERED: TRAD5TAB1 PO (13:37)
[2020-08-02] MEDS ORDERED: ASPIR-TRIN325 MG PO (15:15)
[2020-08-02 16:00] VITALS: BP 187/69
[2020-08-02 20:00] VITALS: BP 191/76
[2020-08-03] VITALS: BP 155/65
[2020-08-03 05:21] LABS: ALBUMIN 2.9 gm/dl (3.1-4.5); CREATININE 2.9 mg/dL (0.55-1.02); POTASSIUM 4.9 mmol/L (3.5-5.1)
[2020-08-03 05:55] LABS: BASO # 0.1 10*3/uL (0.0-0.1); BASO % 1.1 % (0.0-1.0); EOS # 0.3 10*3/uL (0.0-0.4); EOS % 3.6 % (1.0-4.0); HEMATOCRIT 27.6 % (37.0-47.0); LYMPH # 1.4 10*3/uL (1.3-4.4); LYMPH % 15.2 % (27.0-41.0); MEAN CELL VOLUME 104.5 fl (81.0-99.0); MEAN CORPUSCULAR HGB 32.6 pg (27.0-31.0); MEAN CORPUSCULAR HGB CONC 31.2 g/dl (33.0-37.0); MEAN PLATELET VOLUME 10.5 fl (9.6-12.3); NEUT # 6.6 10*3/uL (2.3-7.9); NEUT % 68.9 % (47.0-73.0); PLATELET COUNT AUTOMATED 362 10*3/uL (130-400); RED BLOOD COUNT 2.64 10*6/uL (4.10-5.10); RED CELL DISTRI WIDTH 13.9 % (0-14.5); WHITE BLOOD COUNT 9.5 10*3/uL (4.8-10.8)
[2020-08-03 08:00] VITALS: BP 158/56
[2020-08-03] MEDS ORDERED: PREDNISONE5 MG PO (09:04)
[2020-08-03] MEDS ORDERED: ZYLOPRIM100 MG PO (09:04)
[2020-08-03] MEDS ORDERED: CEPHALEXIN250 MG PO (09:07)
== END 2020-08-03 09:20 | disposition home or self-care (01) | DRG 539 ==
LOC: ED 08:41 → EDHOLD 10:19 → 4E 10:19
PROVIDERS: Emergency Medicine; Hospitalist; Student in an Organized Health Care Education/Training Program; ADMIT Student in an Organized Health Care Education/Training Program; ATTEND Student in an Organized Health Care Education/Training Program
PROC: 2W3RX2Z Immobilization of Left Lower Leg using Cast (ICD-10-PCS; principal; 2020-08-01)
DX: M86.8X6 Other osteomyelitis, lower leg (principal); N17.0 Acute kidney failure with tubular necrosis; L03.116 Cellulitis of left lower limb; E87.1 Hypo-osmolality and hyponatremia; E87.2 Acidosis; E44.1 Mild protein-calorie malnutrition; I13.0 Hypertensive heart and chronic kidney disease with heart failure and stage 1 through stage 4 chronic kidney disease, or unspecified chronic kidney disease; Z68.41 Body mass index [BMI] 40.0-44.9, adult; N18.4 Chronic kidney disease, stage 4 (severe); M10.372 Gout due to renal impairment, left ankle and foot; E11.69 Type 2 diabetes mellitus with other specified complication; E11.22 Type 2 diabetes mellitus with diabetic chronic kidney disease; E11.65 Type 2 diabetes mellitus with hyperglycemia; E03.9 Hypothyroidism, unspecified; D53.9 Nutritional anemia, unspecified; E66.01 Morbid (severe) obesity due to excess calories; E83.41 Hypermagnesemia; R79.82 Elevated C-reactive protein (CRP); M89.9 Disorder of bone, unspecified; R70.0 Elevated erythrocyte sedimentation rate; N80.9 Endometriosis, unspecified; E78.2 Mixed hyperlipidemia; I50.9 Heart failure, unspecified; E11.42 Type 2 diabetes mellitus with diabetic polyneuropathy; T50.2X5A Adverse effect of carbonic-anhydrase inhibitors, benzothiadiazides and other diuretics, initial encounter; I70.201 Unspecified atherosclerosis of native arteries of extremities, right leg; M11.872 Other specified crystal arthropathies, left ankle and foot; Z79.4 Long term (current) use of insulin; Z88.5 Allergy status to narcotic agent; Z88.6 Allergy status to analgesic agent; Z88.8 Allergy status to other drugs, medicaments and biological substances; Z90.49 Acquired absence of other specified parts of digestive tract; Z90.711 Acquired absence of uterus with remaining cervical stump; Z82.49 Family history of ischemic heart disease and other diseases of the circulatory system; Z83.3 Family history of diabetes mellitus; Z79.82 Long term (current) use of aspirin; Z79.899 Other long term (current) drug therapy; Z86.73 Personal history of transient ischemic attack (TIA), and cerebral infarction without residual deficits; Y92.89 Other specified places as the place of occurrence of the external cause

== ENCOUNTER → 2020-08-15 | Outpatient (CLI) | payer MEDICARE, MEDICAID ==
[~2020-08-15] MED LIST changes: +ASPIR-TRIN325 MG PO; +CARVEDILOL12.5 MG PO; +CEPHALEXIN250 MG PO; +DOXYCYCLINE100 M3 PO; +DULOXETINE HCL60 MG PO; +LEVOTHYROXINE100 MC1 PO; +MONTELUKAST SOD10 MG PO; +NOVOLOG100 UNIT/1 SC; +OMEPRAZOLE20 M2 PO; +PREDNISONE5 MG PO; +TRAD5TAB1 PO; +VENT7GM PO; +VITAMIN D31250 MC1 PO; +XARELTO10 MG PO; +ZYLOPRIM100 MG PO
== END | disposition home or self-care (01) ==
LOC: CT 08:51
PROVIDERS: ATTEND Podiatrist Foot & Ankle Surgery
DX: M84.475A Pathological fracture, left foot, initial encounter for fracture (principal); M19.072 Primary osteoarthritis, left ankle and foot; Q72.7 Split foot; M77.32 Calcaneal spur, left foot; M85.672 Other cyst of bone, left ankle and foot; M85.872 Other specified disorders of bone density and structure, left ankle and foot; R60.0 Localized edema; M24.875 Other specific joint derangements left foot, not elsewhere classified; M10.9 Gout, unspecified; M14.671 Charcot's joint, right ankle and foot

== ENCOUNTER → 2020-08-17 | Outpatient (CLI) | payer MEDICARE, MEDICAID | END | disposition home or self-care (01) | LOC: COVID19 10:50 | PROVIDERS: ATTEND Podiatrist | DX: Z01.812 Encounter for preprocedural laboratory examination (principal); Z20.822 Contact with and (suspected) exposure to COVID-19 ==

== ENCOUNTER → 2020-08-22 | Day surgery (SDC) | payer MEDICARE, MEDICAID ==
[~2020-08-22] VITALS: Ht 170.1 cm; Wt 111.1 kg
[2020-08-22 06:59] VITALS: BP 186/59
[2020-08-22 07:57] VITALS: BP 133/50
[2020-08-22 08:12] VITALS: BP 142/59
[2020-08-22 08:27] VITALS: BP 157/69
[2020-08-23 11:07] LABS: ACID FAST SPEC PROCESSING Tissue Grinding (.)
== END | disposition home or self-care (01) ==
LOC: SDC 08-17 10:15
PROVIDERS: ATTEND Podiatrist
DX: M86.8X7 Other osteomyelitis, ankle and foot (principal); I11.0 Hypertensive heart disease with heart failure; I50.9 Heart failure, unspecified; E11.9 Type 2 diabetes mellitus without complications; E78.00 Pure hypercholesterolemia, unspecified; Z86.73 Personal history of transient ischemic attack (TIA), and cerebral infarction without residual deficits; E03.9 Hypothyroidism, unspecified; Z98.890 Other specified postprocedural states; Z88.5 Allergy status to narcotic agent; Z79.899 Other long term (current) drug therapy

== ENCOUNTER → 2020-08-30 | Day surgery (SDC) | payer MEDICARE, MEDICAID ==
[~2020-08-30] VITALS: Ht 170.1 cm; Wt 111.1 kg
[2020-08-30 07:06] VITALS: BP 138/53
[2020-08-30 07:52] VITALS: BP 125/63
[2020-08-30 08:07] VITALS: BP 120/61
[2020-08-30 08:22] VITALS: BP 148/66
== END | disposition home or self-care (01) ==
LOC: SDC 08-27 09:30
PROVIDERS: ATTEND Surgery
DX: Z12.11 Encounter for screening for malignant neoplasm of colon (principal); D12.5 Benign neoplasm of sigmoid colon; K57.30 Diverticulosis of large intestine without perforation or abscess without bleeding; I11.0 Hypertensive heart disease with heart failure; I50.9 Heart failure, unspecified; E11.9 Type 2 diabetes mellitus without complications; K21.9 Gastro-esophageal reflux disease without esophagitis; E78.00 Pure hypercholesterolemia, unspecified; E03.9 Hypothyroidism, unspecified; Z90.49 Acquired absence of other specified parts of digestive tract; Z90.710 Acquired absence of both cervix and uterus; Z86.73 Personal history of transient ischemic attack (TIA), and cerebral infarction without residual deficits; Z79.899 Other long term (current) drug therapy; Z20.822 Contact with and (suspected) exposure to COVID-19

== ENCOUNTER 2020-09-12 12:45 | Emergency (ER) | payer MEDICARE, MEDICAID ==
[~2020-09-12] VITALS: Ht 170.1 cm; Wt 111.6 kg
[2020-09-12 13:28] LABS: HEMATOCRIT 22.6 % (37.0-47.0); MEAN CELL VOLUME 102.3 fl (81.0-99.0); MEAN CORPUSCULAR HGB CONC 28.3 g/dl (33.0-37.0); MEAN PLATELET VOLUME 9.9 fl (9.6-12.3); NUCLEATED RED BLOOD CELL 0.4 % (0.0-0.0); PLATELET COUNT AUTOMATED 425 10*3/uL (130-400); RED BLOOD COUNT 2.21 10*6/uL (4.10-5.10); RED CELL DISTRI WIDTH 16.8 % (0-14.5); WHITE BLOOD COUNT 10.2 10*3/uL (4.8-10.8)
[2020-09-12 13:43] LABS: TOTAL CELLS COUNTED 100 #CELLS
[2020-09-12 13:44] LABS: PLATELET SUFFICIENCY HIGH (NORMAL)
[2020-09-13] VITALS (21 sets, daily range): BP systolic 146–179; BP diastolic 48–68
== END 2020-09-13 10:55 | disposition home or self-care (01) ==
LOC: ED 12:45
PROVIDERS: Student in an Organized Health Care Education/Training Program
DX: D64.9 Anemia, unspecified (principal); Z90.49 Acquired absence of other specified parts of digestive tract; Z90.710 Acquired absence of both cervix and uterus; Z79.899 Other long term (current) drug therapy; Z88.6 Allergy status to analgesic agent; Z88.5 Allergy status to narcotic agent

== ENCOUNTER → 2020-09-12 | Outpatient (CLI) | payer MEDICARE, MEDICAID ==
[2020-09-12 11:10] LABS: HEMATOCRIT 21.7 % (37.0-47.0); MEAN CELL VOLUME 102.4 fl (81.0-99.0); MEAN CORPUSCULAR HGB 28.8 pg (27.0-31.0); MEAN CORPUSCULAR HGB CONC 28.1 g/dl (33.0-37.0); MEAN PLATELET VOLUME 9.4 fl (9.6-12.3); NUCLEATED RED BLOOD CELL 0.3 % (0.0-0.0); PLATELET COUNT AUTOMATED 409 10*3/uL (130-400); RED BLOOD COUNT 2.12 10*6/uL (4.10-5.10); WHITE BLOOD COUNT 9.2 10*3/uL (4.8-10.8)
[2020-09-12 11:19] LABS: URINE CREATININE RANDOM 51.7 mg/dL
[2020-09-12 11:20] LABS: BILIRUBIN Negative (Negative); BLOOD Negative (Negative); CLARITY Clear (Clear); COLOR Yellow (Yellow); GLUCOSE Trace (Negative); KETONE Negative (Negative); LEUKO ESTERASE Negative (Negative); NITRITE Negative (Negative); UROBILINOGEN 0.2 E.U./dl (0.0-1.0)
[2020-09-12 11:28] LABS: ALBUMIN 2.9 gm/dl (3.1-4.5); CREATININE 3.66 mg/dL (0.55-1.02); POTASSIUM 4.3 mmol/L (3.5-5.1)
[2020-09-12 11:32] LABS: BASOPHILS 1 % (0-1); PLATELET SUFFICIENCY HIGH (NORMAL); TOTAL CELLS COUNTED 100 #CELLS
[2020-09-12 11:47] LABS: FERRITIN 24.1 ng/mL (10.0-291.0); VITAMIN D, 25-HYDROXY 31.6 ng/mL (30-100)
[2020-09-12 13:04] LABS: BACTERIA TRACE; MUCOUS 1+
== END | disposition home or self-care (01) ==
LOC: LAB 10:38
PROVIDERS: ATTEND Internal Medicine Nephrology
DX: N18.4 Chronic kidney disease, stage 4 (severe) (principal); E55.9 Vitamin D deficiency, unspecified; D63.1 Anemia in chronic kidney disease; R80.9 Proteinuria, unspecified

== ENCOUNTER → 2020-09-18 | Outpatient (CLI) | payer MEDICARE, MEDICAID ==
[2020-09-18 10:55] LABS: BASO # 0.1 10*3/uL (0.0-0.1); EOS # 0.5 10*3/uL (0.0-0.4); HEMATOCRIT 31.3 % (37.0-47.0); LYMPH # 1.2 10*3/uL (1.3-4.4); LYMPH % 13.4 % (27.0-41.0); MEAN CELL VOLUME 101.6 fl (81.0-99.0); MEAN CORPUSCULAR HGB 29.5 pg (27.0-31.0); MEAN CORPUSCULAR HGB CONC 29.1 g/dl (33.0-37.0); MEAN PLATELET VOLUME 9.3 fl (9.6-12.3); MONO # 0.9 10*3/uL (0.1-1.0); MONO % 9.3 % (3.0-9.0); NEUT # 6.5 10*3/uL (2.3-7.9); NEUT % 70.4 % (47.0-73.0); PLATELET COUNT AUTOMATED 378 10*3/uL (130-400); RED BLOOD COUNT 3.08 10*6/uL (4.10-5.10); RED CELL DISTRI WIDTH 16.2 % (0-14.5); WHITE BLOOD COUNT 9.2 10*3/uL (4.8-10.8)
[2020-09-18 10:57] LABS: BILIRUBIN Negative (Negative); BLOOD Negative (Negative); CLARITY Clear (Clear); COLOR Yellow (Yellow); GLUCOSE Negative (Negative); KETONE Negative (Negative); LEUKO ESTERASE Trace (Negative); NITRITE Negative (Negative); UROBILINOGEN 0.2 E.U./dl (0.0-1.0)
[2020-09-18 11:06] LABS: URINE CREATININE RANDOM 79.8 mg/dL
[2020-09-18 11:07] LABS: BACTERIA 4+; EPITHELIAL CELLS 21-30; MUCOUS 1+
[2020-09-18 11:16] LABS: ALBUMIN 3.4 gm/dl (3.1-4.5); CREATININE 3.16 mg/dL (0.55-1.02); POTASSIUM 4.2 mmol/L (3.5-5.1)
[2020-09-18 11:28] LABS: FERRITIN 23.8 ng/mL (10.0-291.0); VITAMIN D, 25-HYDROXY 34.6 ng/mL (30-100)
[2020-09-18 11:29] LABS: PTH INTACT 320.3 pg/mL (18.5-88.0)
== END | disposition home or self-care (01) ==
LOC: LAB 10:36
PROVIDERS: ATTEND Internal Medicine Nephrology
DX: N18.4 Chronic kidney disease, stage 4 (severe) (principal); D63.1 Anemia in chronic kidney disease; E55.9 Vitamin D deficiency, unspecified; R80.9 Proteinuria, unspecified

== ENCOUNTER 2021-10-18 11:47 | Inpatient (IN) | payer MEDICARE, MEDICAID ==
[~2021-10-18] VITALS: Ht 170.2 cm; Wt 115.0 kg
[~2021-10-18 11:47] MED LIST changes: +ASPIRIN81 M1 PO
[2021-10-18 11:56] VITALS: BP 126/69
[2021-10-18 12:09] LABS: BASO # 0.1 10*3/uL (0.0-0.1); BASO % 0.8 % (0.0-1.0); EOS # 0.6 10*3/uL (0.0-0.4); EOS % 5.2 % (1.0-4.0); HEMATOCRIT 37.9 % (37.0-47.0); LYMPH # 0.7 10*3/uL (1.3-4.4); LYMPH % 5.9 % (27.0-41.0); MEAN CELL VOLUME 100.5 fl (81.0-99.0); MEAN CORPUSCULAR HGB 31.6 pg (27.0-31.0); MEAN CORPUSCULAR HGB CONC 31.4 g/dl (33.0-37.0); MEAN PLATELET VOLUME 10.2 fl (9.6-12.3); MONO # 0.6 10*3/uL (0.1-1.0); MONO % 5.2 % (3.0-9.0); NEUT # 9.3 10*3/uL (2.3-7.9); NEUT % 81.3 % (47.0-73.0); PLATELET COUNT AUTOMATED 242 10*3/uL (130-400); RED BLOOD COUNT 3.77 10*6/uL (4.10-5.10); RED CELL DISTRI WIDTH 14.6 % (0-14.5); WHITE BLOOD COUNT 11.4 10*3/uL (4.8-10.8)
[2021-10-18 12:19] LABS: ACT PARTIAL THROMBO TIME 28.5 SECONDS (20.0-32.1); INTERNATIONAL NORM RATIO 0.9 (2.0-3.5)
[2021-10-18 12:28] LABS: BILIRUBIN Negative (Negative); BLOOD Negative (Negative); CLARITY Clear (Clear); COLOR Yellow (Yellow); GLUCOSE 2+ (Negative); KETONE Negative (Negative); LEUKO ESTERASE Negative (Negative); NITRITE Negative (Negative); PH 5.5 (4.5-8.0); UROBILINOGEN 0.2 E.U./dl (0.0-1.0)
[2021-10-18 12:34] LABS: CREATININE 3.59 mg/dL (0.55-1.02); POTASSIUM 4.9 mmol/L (3.5-5.1)
[2021-10-18 12:58] LABS: BACTERIA 2+
[2021-10-18 14:56] VITALS: BP 136/68
[2021-10-18 17:25] VITALS: BP 186/88
[2021-10-18 18:36] VITALS: BP 156/76
[2021-10-18 20:00] VITALS: BP 163/77
[2021-10-18] MEDS ORDERED: GABAPENTIN100 M2 PO (20:20)
[2021-10-19 04:00] VITALS: BP 140/59
[2021-10-19 06:31] LABS: BASO # 0.1 10*3/uL (0.0-0.1); BASO % 0.4 % (0.0-1.0); EOS # 0.1 10*3/uL (0.0-0.4); HEMATOCRIT 36.3 % (37.0-47.0); LYMPH # 0.7 10*3/uL (1.3-4.4); LYMPH % 6.6 % (27.0-41.0); MEAN CELL VOLUME 101.7 fl (81.0-99.0); MEAN CORPUSCULAR HGB 31.9 pg (27.0-31.0); MEAN CORPUSCULAR HGB CONC 31.4 g/dl (33.0-37.0); MEAN PLATELET VOLUME 10.4 fl (9.6-12.3); MONO % 9.1 % (3.0-9.0); NEUT # 9.1 10*3/uL (2.3-7.9); NEUT % 81.7 % (47.0-73.0); PLATELET COUNT AUTOMATED 243 10*3/uL (130-400); RED BLOOD COUNT 3.57 10*6/uL (4.10-5.10); RED CELL DISTRI WIDTH 14.6 % (0-14.5); WHITE BLOOD COUNT 11.2 10*3/uL (4.8-10.8)
[2021-10-19 06:40] LABS: ACT PARTIAL THROMBO TIME 30.2 SECONDS (20.0-32.1); INTERNATIONAL NORM RATIO 0.9 (2.0-3.5)
[2021-10-19 07:09] LABS: CREATININE 3.59 mg/dL (0.55-1.02); FREE T4 0.85 ng/dl (0.76-1.46); POTASSIUM 5.6 mmol/L (3.5-5.1); TOTAL PROTEIN 6.5 gm/dL (6.4-8.2)
[2021-10-19 07:13] LABS: THYROID STIM HORMONE (HS) 0.317 uIU/ml (0.358-4.75)
[2021-10-19 08:00] VITALS: BP 143/78
[2021-10-19 08:02] LABS: VITAMIN D, 25-HYDROXY 45.7 ng/mL (30-100)
[2021-10-19] MEDS ORDERED: CALCIUM CARBON200 MG PO (11:21)
[2021-10-19] MEDS ORDERED: PANTOPRAZOLE SO40 MG PO (11:21)
== END 2021-10-19 13:31 | disposition home or self-care (01) | DRG 391 ==
LOC: ED 11:47 → EDHOLD 14:53 → 5E 14:53 → EDHOLD 15:52 → 5E 16:02
PROVIDERS: Emergency Medicine; Student in an Organized Health Care Education/Training Program; ADMIT Family Medicine; ATTEND Family Medicine
DX: K21.9 Gastro-esophageal reflux disease without esophagitis (principal); N17.0 Acute kidney failure with tubular necrosis; E44.0 Moderate protein-calorie malnutrition; I13.2 Hypertensive heart and chronic kidney disease with heart failure and with stage 5 chronic kidney disease, or end stage renal disease; N18.5 Chronic kidney disease, stage 5; R82.71 Bacteriuria; I50.9 Heart failure, unspecified; E11.22 Type 2 diabetes mellitus with diabetic chronic kidney disease; E03.9 Hypothyroidism, unspecified; E66.01 Morbid (severe) obesity due to excess calories; E11.40 Type 2 diabetes mellitus with diabetic neuropathy, unspecified; D53.9 Nutritional anemia, unspecified; E11.65 Type 2 diabetes mellitus with hyperglycemia; Z79.4 Long term (current) use of insulin; Z88.6 Allergy status to analgesic agent; Z88.8 Allergy status to other drugs, medicaments and biological substances; Z90.711 Acquired absence of uterus with remaining cervical stump; Z90.49 Acquired absence of other specified parts of digestive tract; Z90.710 Acquired absence of both cervix and uterus; Z80.3 Family history of malignant neoplasm of breast; Z83.3 Family history of diabetes mellitus; Z82.49 Family history of ischemic heart disease and other diseases of the circulatory system; Z68.39 Body mass index [BMI] 39.0-39.9, adult

== ENCOUNTER 2023-04-30 12:19 | Inpatient (IN) | payer OTHER ==
[2023-04-30] VITALS (7 sets, daily range): BP systolic 144–190; BP diastolic 53–95
[~2023-04-30] VITALS: Ht 170.1 cm; Wt 108.0 kg
[~2023-04-30 12:19] MED LIST changes: +ALLOPURINOL100 MG PO; +CALCIUM CARBON200 MG PO; +GABAPENTIN100 M2 PO; +PANTOPRAZOLE SO40 MG PO
[2023-04-30 12:58] LABS: BASO # 0.1 10*3/uL (0.0-0.1); BASO % 0.9 % (0.0-1.0); EOS # 0.4 10*3/uL (0.0-0.4); EOS % 4.3 % (1.0-4.0); HEMATOCRIT 31.8 % (37.0-47.0); LYMPH % 9.6 % (27.0-41.0); MEAN CELL VOLUME 103.9 fl (81.0-99.0); MEAN CORPUSCULAR HGB 30.4 pg (27.0-31.0); MEAN CORPUSCULAR HGB CONC 29.2 g/dl (33.0-37.0); MEAN PLATELET VOLUME 9.3 fl (9.6-12.3); MONO # 0.7 10*3/uL (0.1-1.0); MONO % 6.7 % (3.0-9.0); NEUT # 7.8 10*3/uL (2.3-7.9); PLATELET COUNT AUTOMATED 298 10*3/uL (130-400); RED BLOOD COUNT 3.06 10*6/uL (4.10-5.10); RED CELL DISTRI WIDTH 15.4 % (0-14.5); WHITE BLOOD COUNT 10.2 10*3/uL (4.8-10.8)
[2023-04-30] MEDS ORDERED: diphenhydrAMINE hydrochloride 25 MG CAP PO ONE (13:05)
[2023-04-30 13:20] LABS: POTASSIUM 4.7 mmol/L (3.4-5.1); TOTAL PROTEIN 6.8 gm/dL (6.0-8.0)
[2023-04-30] MEDS ORDERED: FUROSEMIDE 40 MG/4 ML VIAL IV ONE (13:40)
[2023-04-30] MEDS ORDERED: BISACODYL 5 MG TAB PO PRN (15:10)
[2023-04-30] MEDS ORDERED: Ondansetron Hydrochloride 4 MG/2 ML VIAL IV PRN (15:10)
[2023-04-30] MEDS ORDERED: ACETAMINOPHEN 325 MG TAB PO PRN (15:10)
[2023-04-30] MEDS ORDERED: DEXTROSE 10 % IN WATER 250 ML IV PRN (15:20)
[2023-04-30 16:01] LABS: BILIRUBIN Negative (Negative); BLOOD Negative (Negative); CLARITY Clear (Clear); COLOR Yellow (Yellow); GLUCOSE Negative (Negative); KETONE Negative (Negative); LEUKO ESTERASE Negative (Negative); NITRITE Negative (Negative); PH 5.5 (4.5-8.0); UROBILINOGEN 0.2 E.U./dl (0.0-1.0)
[2023-04-30 16:27] LABS: BACTERIA 1+; FINE GRANULAR CAST 0-2; MUCOUS 1+; RBC 0-2 rbc/hpf (0-2)
[2023-04-30] MEDS ORDERED: CALCIUM (TUMS) 500MG PO PRN (16:30)
[2023-04-30] MEDS ORDERED: INSULIN LISPRO 1 UNIT/0.01 ML SQ SCH (16:30)
[2023-04-30] MEDS ORDERED: FUROSEMIDE 40 MG/4 ML VIAL IV SCH (18:00)
[2023-04-30] MEDS ORDERED: Insulin Glargine, Recombinan 1 UNIT/0.01 ML SC SCH (18:00)
[2023-04-30] MEDS ORDERED: HEPARIN SODIUM 5,000 UNIT/ML VIAL SC SCH (22:00)
[2023-04-30] MEDS ORDERED: SIMVASTATIN 20 MG TAB PO SCH (22:00)
[2023-04-30] MEDS ORDERED: EZETIMIBE 10 MG TAB PO SCH (22:00)
[2023-04-30] MEDS ORDERED: CARVEDILOL 12.5 MG TAB PO SCH (22:00)
[2023-04-30] MEDS ORDERED: GABAPENTIN 100 MG CAP PO SCH (22:00)
[2023-04-30] MEDS ORDERED: cloNIDine Hydrochloride 0.2 MG TAB PO SCH (22:00)
[2023-05-01] VITALS (7 sets, daily range): BP systolic 122–192; BP diastolic 60–79
[2023-05-01 05:55] LABS: ALKALINE PHOSPHATASE 75 U/L (46-116); BUN 65 mg/dl (9-23); CHLORIDE 104 mmol/L (98-107); CHOLESTEROL 167 mg/dL (<200); FREE T4 0.81 ng/dl (0.89-1.76); LDL CHOLESTEROL 97 mg/dL (9-159); POTASSIUM 4.6 mmol/L (3.4-5.1); SGPT/ALT 10 U/L (5-49); TOTAL PROTEIN 6.4 gm/dL (6.0-8.0); TRIGLYCERIDES 187 mg/dl (<150)
[2023-05-01 05:59] LABS: BASO # 0.1 10*3/uL (0.0-0.1); BASO % 0.9 % (0.0-1.0); EOS # 0.4 10*3/uL (0.0-0.4); EOS % 4.7 % (1.0-4.0); HEMATOCRIT 31.6 % (37.0-47.0); MEAN CORPUSCULAR HGB 30.2 pg (27.0-31.0); MEAN CORPUSCULAR HGB CONC 28.8 g/dl (33.0-37.0); MEAN PLATELET VOLUME 10.1 fl (9.6-12.3); MONO # 0.7 10*3/uL (0.1-1.0); MONO % 7.3 % (3.0-9.0); NEUT % 74.6 % (47.0-73.0); PLATELET COUNT AUTOMATED 307 10*3/uL (130-400); RED BLOOD COUNT 3.01 10*6/uL (4.10-5.10); RED CELL DISTRI WIDTH 15.3 % (0-14.5); WHITE BLOOD COUNT 9.4 10*3/uL (4.8-10.8)
[2023-05-01] MEDS ORDERED: Levothyroxine Sodium 100 MCG TAB PO SCH (06:00)
[2023-05-01] MEDS ORDERED: Pantoprazole Sodium 40 MG TAB PO SCH (06:00)
[2023-05-01 07:13] LABS: VITAMIN D, 25-HYDROXY 52.7 ng/mL (30-100)
[2023-05-01] MEDS ORDERED: Duloxetine Hydrochloride 60 MG CAP PO SCH (10:00)
[2023-05-01] MEDS ORDERED: CALCITRIOL 0.25 MCG CAP PO SCH (10:00)
[2023-05-01] MEDS ORDERED: ALLOPURINOL 100 MG TAB PO SCH (10:00)
[2023-05-01] MEDS ORDERED: NA FERRIC GLUC CMPL/SUCROSE 62.5 MG/5 ML VIAL IV SCH (14:55)
[2023-05-01] MEDS ORDERED: MED. FROM HOME 1 EACH EA PO SCH (17:00)
[2023-05-01] MEDS ORDERED: FUROSEMIDE 40 MG/4 ML VIAL IV SCH (18:00)
[2023-05-02] VITALS: BP 150/59
[2023-05-02 05:36] VITALS: BP 139/66
[2023-05-02 07:27] LABS: POTASSIUM 4.4 mmol/L (3.4-5.1)
[2023-05-02 08:00] VITALS: BP 155/71
[2023-05-02 12:00] VITALS: BP 188/72
[2023-05-02] MEDS ORDERED: NOVOLOG FL100 UNIT/2 SQ ×2 (12:31→12:32)
[2023-05-02 15:50] VITALS: BP 189/72
[2023-05-02 20:00] VITALS: BP 187/79
[2023-05-02] MEDS ORDERED: GUAIFENESIN/DEXTROMETHORPHAN 10 ML UDC PO PRN (20:00)
[2023-05-03] VITALS: BP 167/67
[2023-05-03 06:21] LABS: BASO # 0.1 10*3/uL (0.0-0.1); EOS # 0.5 10*3/uL (0.0-0.4); EOS % 5.6 % (1.0-4.0); HEMATOCRIT 30.2 % (37.0-47.0); LYMPH % 11.4 % (27.0-41.0); MEAN CORPUSCULAR HGB 30.4 pg (27.0-31.0); MEAN CORPUSCULAR HGB CONC 29.8 g/dl (33.0-37.0); MEAN PLATELET VOLUME 10.2 fl (9.6-12.3); MONO # 0.7 10*3/uL (0.1-1.0); MONO % 7.6 % (3.0-9.0); NEUT # 6.6 10*3/uL (2.3-7.9); NEUT % 72.5 % (47.0-73.0); PLATELET COUNT AUTOMATED 303 10*3/uL (130-400); RED BLOOD COUNT 2.96 10*6/uL (4.10-5.10); RED CELL DISTRI WIDTH 15.5 % (0-14.5); WHITE BLOOD COUNT 9.1 10*3/uL (4.8-10.8)
[2023-05-03 07:09] LABS: POTASSIUM 4.7 mmol/L (3.4-5.1)
[2023-05-03 08:00] VITALS: BP 162/69
[2023-05-03 12:00] VITALS: BP 160/58
[2023-05-03] MEDS ORDERED: LASIX80 MG PO (13:47)
== END 2023-05-03 14:24 | disposition home health service (06) | DRG 291 ==
LOC: ED 12:19 → 4E 14:26 → EDHOLD 14:26 → 4E 16:42
PROVIDERS: Internal Medicine; Nurse Practitioner Family; Registered Nurse; ADMIT Internal Medicine; ATTEND Internal Medicine
DX: I13.2 Hypertensive heart and chronic kidney disease with heart failure and with stage 5 chronic kidney disease, or end stage renal disease (principal); I50.33 Acute on chronic diastolic (congestive) heart failure; N18.5 Chronic kidney disease, stage 5; E44.0 Moderate protein-calorie malnutrition; F33.9 Major depressive disorder, recurrent, unspecified; E11.22 Type 2 diabetes mellitus with diabetic chronic kidney disease; E11.40 Type 2 diabetes mellitus with diabetic neuropathy, unspecified; H54.8 Legal blindness, as defined in USA; D53.9 Nutritional anemia, unspecified; E78.2 Mixed hyperlipidemia; M1A.9XX0 Chronic gout, unspecified, without tophus (tophi); E03.9 Hypothyroidism, unspecified; Z88.6 Allergy status to analgesic agent; Z88.8 Allergy status to other drugs, medicaments and biological substances; Z90.711 Acquired absence of uterus with remaining cervical stump; Z90.49 Acquired absence of other specified parts of digestive tract; Z82.49 Family history of ischemic heart disease and other diseases of the circulatory system; Z83.3 Family history of diabetes mellitus; Z80.3 Family history of malignant neoplasm of breast; Z79.4 Long term (current) use of insulin; Z68.39 Body mass index [BMI] 39.0-39.9, adult

== ENCOUNTER 2023-10-21 09:21 | Emergency (ER) | payer MEDICARE ==
[~2023-10-21] VITALS: Ht 170.1 cm; Wt 94.1 kg
[~2023-10-21 09:21] MED LIST changes: +LASIX80 MG PO; +NOVOLOG FL100 UNIT/2 SQ
[2023-10-21] MEDS ORDERED: niCARdipine hydrochloride 25 MG in SODIUM CHLORIDE 0.9% 240 ML IV SCH (10:45)
[2023-10-21] MEDS ORDERED: Lidocaine Hydrochloride 5 ML AMP SC ONE (10:45)
[2023-10-21] MEDS ORDERED: LIDOCAINE 1 EA PATCH T ONE (10:45)
[2023-10-21 10:50] LABS: BASO # 0.2 10*3/uL (0.0-0.1); BASO % 1.1 % (0.0-1.0); EOS # 0.5 10*3/uL (0.0-0.4); EOS % 3.5 % (1.0-4.0); HEMATOCRIT 35.4 % (37.0-47.0); LYMPH # 1.1 10*3/uL (1.3-4.4); LYMPH % 7.1 % (27.0-41.0); MEAN CORPUSCULAR HGB 31.4 pg (27.0-31.0); MEAN CORPUSCULAR HGB CONC 29.7 g/dl (33.0-37.0); MEAN PLATELET VOLUME 9.5 fl (9.6-12.3); MONO # 0.8 10*3/uL (0.1-1.0); NEUT # 12.6 10*3/uL (2.3-7.9); NEUT % 81.7 % (47.0-73.0); PLATELET COUNT AUTOMATED 316 10*3/uL (130-400); RED BLOOD COUNT 3.34 10*6/uL (4.10-5.10); RED CELL DISTRI WIDTH 15.2 % (0-14.5); WHITE BLOOD COUNT 15.4 10*3/uL (4.8-10.8)
[2023-10-21 11:10] LABS: POTASSIUM 4.9 mmol/L (3.4-5.1); TOTAL PROTEIN 6.2 gm/dL (6.0-8.0)
[2023-10-21 11:22] VITALS: BP 126/64
[2023-10-21 11:26] LABS: ACT PARTIAL THROMBO TIME 26.1 SECONDS (20.0-32.1)
== END 2023-10-21 11:35 | disposition short-term general hospital (02) ==
LOC: ED 09:21
PROVIDERS: Emergency Medicine
DX: S06.5XAA Traumatic subdural hemorrhage with loss of consciousness status unknown, initial encounter (principal); I12.0 Hypertensive chronic kidney disease with stage 5 chronic kidney disease or end stage renal disease; E11.22 Type 2 diabetes mellitus with diabetic chronic kidney disease; N18.5 Chronic kidney disease, stage 5; F32.A Depression, unspecified; I10 Essential (primary) hypertension; E78.5 Hyperlipidemia, unspecified; E03.9 Hypothyroidism, unspecified; E44.0 Moderate protein-calorie malnutrition; E11.40 Type 2 diabetes mellitus with diabetic neuropathy, unspecified; E66.9 Obesity, unspecified; Z68.30 Body mass index [BMI] 30.0-30.9, adult; Z79.4 Long term (current) use of insulin; Z88.6 Allergy status to analgesic agent; Z88.5 Allergy status to narcotic agent; Z88.8 Allergy status to other drugs, medicaments and biological substances; Z79.899 Other long term (current) drug therapy; Z86.73 Personal history of transient ischemic attack (TIA), and cerebral infarction without residual deficits; Z90.49 Acquired absence of other specified parts of digestive tract; Z90.710 Acquired absence of both cervix and uterus; W06.XXXA Fall from bed, initial encounter; Y93.89 Activity, other specified; Y92.89 Other specified places as the place of occurrence of the external cause; Y99.8 Other external cause status

== ENCOUNTER 2024-01-30 15:43 | Emergency (ER) | payer MEDICARE ==
[~2024-01-30 15:43] MED LIST changes: +FUROSEMIDE40 MG PO; +LANTUS100 UNIT/1 SQ; +LOSARTAN POTAS100 M1 PO; +SINGULAIR10 M1 PO
[2024-01-30 15:50] VITALS: BP 115/40
[2024-01-30 16:15] LABS: BASO # 0.1 10*3/uL (0.0-0.1); BASO % 1.4 % (0.0-1.0); EOS # 0.5 10*3/uL (0.0-0.4); EOS % 5.8 % (1.0-4.0); HEMATOCRIT 39.9 % (37.0-47.0); MEAN CORPUSCULAR HGB 31.7 pg (27.0-31.0); MEAN CORPUSCULAR HGB CONC 31.1 g/dl (33.0-37.0); MEAN PLATELET VOLUME 9.8 fl (9.6-12.3); MONO # 0.7 10*3/uL (0.1-1.0); MONO % 8.6 % (3.0-9.0); NEUT # 5.9 10*3/uL (2.3-7.9); NEUT % 69.5 % (47.0-73.0); PLATELET COUNT AUTOMATED 287 10*3/uL (130-400); RED BLOOD COUNT 3.91 10*6/uL (4.10-5.10); RED CELL DISTRI WIDTH 14.5 % (0-14.5); WHITE BLOOD COUNT 8.5 10*3/uL (4.8-10.8)
[2024-01-30 16:49] LABS: ALKALINE PHOSPHATASE 116 U/L (46-116); BUN 14 mg/dl (9-23); CHLORIDE 97 mmol/L (98-107); LIPASE 31 U/L (12-53); POTASSIUM 3.3 mmol/L (3.4-5.1); TOTAL PROTEIN 6.8 gm/dL (6.0-8.0)
[2024-01-30 17:09] LABS: SGPT/ALT < 7 U/L (5-49)
[2024-01-30] MEDS ORDERED: METRONIDAZOLE500 M1 PO (18:01)
[2024-01-30] MEDS ORDERED: CIPRO500 MG PO (18:01)
== END 2024-01-30 18:45 | disposition home or self-care (01) ==
LOC: ED 15:43
PROVIDERS: Physician Assistant Medical
DX: K57.32 Diverticulitis of large intestine without perforation or abscess without bleeding (principal); J18.9 Pneumonia, unspecified organism; D13.5 Benign neoplasm of extrahepatic bile ducts; I13.0 Hypertensive heart and chronic kidney disease with heart failure and stage 1 through stage 4 chronic kidney disease, or unspecified chronic kidney disease; I50.9 Heart failure, unspecified; E11.22 Type 2 diabetes mellitus with diabetic chronic kidney disease; N18.9 Chronic kidney disease, unspecified; E78.00 Pure hypercholesterolemia, unspecified; R11.0 Nausea; R19.7 Diarrhea, unspecified; Z88.6 Allergy status to analgesic agent; Z88.5 Allergy status to narcotic agent; Z88.8 Allergy status to other drugs, medicaments and biological substances; Z90.49 Acquired absence of other specified parts of digestive tract; Z90.710 Acquired absence of both cervix and uterus; Z98.890 Other specified postprocedural states

== ENCOUNTER 2024-03-14 14:29 | Emergency (ER) | payer OTHER ==
[~2024-03-14] VITALS: Ht 170.1 cm; Wt 95.3 kg
[~2024-03-14 14:29] MED LIST changes: +CIPRO500 MG PO; +METRONIDAZOLE500 M1 PO
[2024-03-14 14:36] VITALS: BP 158/58
[2024-03-14] MEDS ORDERED: Ondansetron Hydrochloride 4 MG/2 ML VIAL IV ONE (14:45)
[2024-03-14 15:31] LABS: BASO # 0.2 10*3/uL (0.0-0.1); BASO % 1.6 % (0.0-1.0); EOS # 0.4 10*3/uL (0.0-0.4); EOS % 4.7 % (1.0-4.0); HEMATOCRIT 48.2 % (37.0-47.0); MEAN CORPUSCULAR HGB CONC 30.7 g/dl (33.0-37.0); MEAN PLATELET VOLUME 10.7 fl (9.6-12.3); MONO # 0.5 10*3/uL (0.1-1.0); MONO % 5.6 % (3.0-9.0); NEUT # 7.5 10*3/uL (2.3-7.9); NEUT % 80.2 % (47.0-73.0); PLATELET COUNT AUTOMATED 285 10*3/uL (130-400); RED BLOOD COUNT 4.77 10*6/uL (4.10-5.10); RED CELL DISTRI WIDTH 13.8 % (0-14.5); WHITE BLOOD COUNT 9.4 10*3/uL (4.8-10.8)
[2024-03-14 16:00] LABS: ALKALINE PHOSPHATASE 103 U/L (46-116); BUN 33 mg/dl (9-23); CHLORIDE 100 mmol/L (98-107); LIPASE 32 U/L (12-53); POTASSIUM 4.3 mmol/L (3.4-5.1); TOTAL PROTEIN 6.8 gm/dL (6.0-8.0)
[2024-03-14 16:16] LABS: SGPT/ALT < 7 U/L (5-49)
== END 2024-03-14 20:26 | disposition home or self-care (01) ==
LOC: ED 14:29
PROVIDERS: Nurse Practitioner Family
DX: K59.00 Constipation, unspecified (principal); R11.10 Vomiting, unspecified; N83.202 Unspecified ovarian cyst, left side; N83.201 Unspecified ovarian cyst, right side; I13.2 Hypertensive heart and chronic kidney disease with heart failure and with stage 5 chronic kidney disease, or end stage renal disease; E11.22 Type 2 diabetes mellitus with diabetic chronic kidney disease; N18.6 End stage renal disease; I50.9 Heart failure, unspecified; F32.A Depression, unspecified; E11.40 Type 2 diabetes mellitus with diabetic neuropathy, unspecified; Z99.2 Dependence on renal dialysis; Z86.14 Personal history of Methicillin resistant Staphylococcus aureus infection; Z88.6 Allergy status to analgesic agent; Z88.5 Allergy status to narcotic agent; Z88.8 Allergy status to other drugs, medicaments and biological substances; Z79.899 Other long term (current) drug therapy; Z79.4 Long term (current) use of insulin; Z86.73 Personal history of transient ischemic attack (TIA), and cerebral infarction without residual deficits; Z90.49 Acquired absence of other specified parts of digestive tract